=== PATIENT | male | born 1950 | race Caucasian/White ===

== ENCOUNTER 2017-08-23 14:02 | Emergency (ER) | payer OTHER ==
[~2017-08-23 14:02] MED LIST: AMLODIPINE10 M1 PO; APAP/HYDROCODON1 T13 PO; ASPI-COR81 M3 PO; BG MC; COL100 PO; HEP5I SC; LAC PO; LEV250 PO; METFORMIN HCL1000 MG PO; METOPROLOL SUCC50 M1 PO; THERAGRAN-M1 TA4 PO; TOR30I IV
[2017-08-23 15:51] LABS: PLATELET COUNT 351 x10^3mcL (130-400)
[2017-08-23 15:54] LABS: RED CELL DISTRIBUTION WIDTH 14.8 % (11.5-14.5)
[2017-08-23 15:57] LABS: BASOPHIL % 0.2 % (0-2)
[2017-08-23 16:08] LABS: CALCIUM 9.2 mg/dL (8.5-10.1); CARBON DIOXIDE 27.1 mmol/L (21-32); CREATININE SERUM 1.4 mg/dL (0.7-1.3); POTASSIUM SERUM 4.6 mmol/L (3.5-5.1)
[2017-08-23 16:12] LABS: ALBUMIN 4.1 g/dL (3.4-5.0); BILIRUBIN TOTAL 0.36 mg/dL (0.20-1.00)
[2017-08-23 16:13] LABS: TOTAL PROTEIN, SERUM 8.5 g/dL (6.4-8.2)
[2017-08-23 17:55] VITALS: BP 132/63
== END 2017-08-23 17:55 | disposition home or self-care (01) ==
LOC: ED 14:02
PROVIDERS: Emergency Medicine
DX: N39.0 Urinary tract infection, site not specified (principal); R51 Headache; R10.13 Epigastric pain; I10 Essential (primary) hypertension; E11.9 Type 2 diabetes mellitus without complications; K21.9 Gastro-esophageal reflux disease without esophagitis
CPT/HCPCS: 83880; J1885; J2405